=== PATIENT | female | born 1995 | race African-American/Black ===

== ENCOUNTER → 2017-07-31 | Outpatient (CLI) | payer OTHER ==
[~2017-07-31] MED LIST: HYDR-3533 PO; IBUP-238 PO; hiv med PO
== END ==
LOC: HPND 09:02
PROVIDERS: ATTEND Obstetrics & Gynecology
DX: O98.511 Other viral diseases complicating pregnancy, first trimester (principal); O99.211 Obesity complicating pregnancy, first trimester; B20 Human immunodeficiency virus [HIV] disease; E66.01 Morbid (severe) obesity due to excess calories; Z68.41 Body mass index [BMI] 40.0-44.9, adult
CPT/HCPCS: 36415; 76813

== ENCOUNTER 2017-12-31 14:09 | Inpatient (IN) ==
[2017-12-31] MEDS ORDERED: Labetalol HCl Inj 100 MG/20 ML Vial IV.PUSH ONE ×2 (15:28→16:53)
--- NOTE | 2017-12-31 15:33 | ED ---
History of Present Illness Primary Care Physician: No Primary Care Physician [facility] History of Present Illness: 22 y/o F, at [id number] presents with high BP, headache, and blurry vision today. Pt had high BP in office today of 148/100, with a repeat of 152/107 at home after resting. She has had a 8/10 headache over the day today with accompanying blurry vision. Denies any cxns, LOF, VB. +FM Obhx: short cervix during (2.3) with progesterone use, and increase to 3.4 HIV of - on medication, undetected viral load this is checked every 3 months Medhx: HIV as above surghx: ankle surgery meds: PNV all: NKDA Review of Systems All other systems reviewed negative except as stated in HPI PMFSH - History History Provided By: Patient - Medical History Medical History: Medical History (Last Updated 12/31/17 @ 14:14 by Mary Harkins) Patient denies medical problems - Surgical History Surgical History: Surgical History (Last Updated 12/31/17 @ 14:14 by Mary Harkins) History of ankle surgery - Travel History Recent Travel in the [facility] Within the Last 8 Weeks: No Recent Travel Out of the Country Within the Last 8 Weeks: No Medications and Allergies Allergies Allergy/AdvReac Type Severity Reaction Status Date / Time No Known Allergies Allergy Verified 12/31/17 14:22 Home Medications Medication Instructions Recorded Confirmed Type PNV cmb#95-ferrous fumarate-FA 1 tab PO DAILY 10/14/17 12/31/17 History [] bklttez-htz-mknht-tenofo disop 1,500 mg PO DAILY 10/14/17 12/31/17 History [Stribild] Exam Vital signs: Vital Signs 12/31/17 14:11 12/31/17 15:06 12/31/17 15:16 Temperature 98.8 F Pulse Rate 91 H 87 84 Respiratory Rate 16 Blood Pressure 197/116 H 156/100 H 168/110 H Pulse Oximetry 100 Intake & Output 12/30/17 12/31/17 12/31/17 18:59 06:59 18:59 Weight 119.295 kg Narrative: ENERAL: Well-nourished, well-developed patient. SKIN: Warm and dry. HEAD: Normocephalic and atraumatic. EYES: No scleral icterus. No injection or drainage. ENT: No nasal drainage noted. Mucous membranes pink. Airway patent. NECK: Supple, trachea midline. No JVD. CARDIOVASCULAR: Regular rate and rhythm without murmurs, gallops, or rubs. RESPIRATORY: Breath sounds equal bilaterally. No accessory muscle use. ABDOMEN/GI: Abdomen soft, non-tender, bowel sounds present, no rebound, no guarding Gravid to 35 weeks size Fundal Height: 35 SVE: f/60/-2, anterior and soft GENITOURINARY: External Genitalia: intact and normal in appearance FHT's: Cat 1 tracing, no decels no cxns on monitor EXTREMITIES: No cyanosis or edema. BACK: Nontender without obvious deformity. No CVA tenderness. NEUROLOGICAL: Awake and alert. Motor and sensory grossly within normal limits. Five out of 5 muscle strength in all muscle groups. Normal speech. Results - Labs CBC & Chem 7: 12/31/17 16:25 12/31/17 16:25 Assessment and Plan - Diagnosis (1) 35 weeks gestation of Code(s): Z3A.35 - 35 weeks gestation of Status: Acute (2) Elevated blood pressure affecting in third trimester, antepartum Code(s): O16.3 - Unspecified maternal hypertension, third trimester Status: Acute Plan: >160/100, headache, blurry vision f/u UA, Urine P/C ratio cat 1 tracing, cont to monitor f/u CBC, CMP STAT labetalol 20mg IV for BP >160/100 f/u BPs q15min Will likely admit for pre-eclampsia management and possible induction of labor Betamethasone x 1 now Discharge Plan - Discharge Disposition Patient Disposition: 30 Still Patient - Physicians Team ED Provider: Halie Garcia Primary Care Provider: Primary Care JackiZoila - Rxs /Orders / Referrals /Forms Prescriptions: No Action lbrrxqj-iqs-tyoys-tenofo disop [Stribild] [id number] mg Tablet 1,500 mg PO DAILY PNV cmb#95-ferrous fumarate-FA [] 28 mg iron- 800 mcg Tablet 1 tab PO DAILY - Discharge Instructions Print Language: Romanian
[2017-12-31 16:48] LABS: Baso % (Auto) 0.1 % (0.0-2.0); Eos # (Auto) 0.1 th/mm3 (0.0-0.4); Eos % (Auto) 0.8 % (0.0-4.0); Hematocrit 32.2 % (35.0-46.0); Hemoglobin 11.1 gm/dL (11.6-15.3); Lymph # (Auto) 1.6 th/mm3 (1.0-4.8); Lymph % (Auto) 21.8 % (9.0-44.0); Mean Corpuscular HGB Conc 34.4 % (32.0-36.0); Mean Corpuscular Hemoglobin 30.4 pg (27.0-34.0); Mean Corpuscular Volume 88.4 fL (80.0-100.0); Mean Platelet Volume 9.3 fL (7.0-11.0); Mono # (Auto) 0.7 th/mm3 (0.0-0.9); Mono % (Auto) 9.1 % (0.0-8.0); Neut # (Auto) 4.9 th/mm3 (1.8-7.7); Neut % (Auto) 68.2 % (16.0-70.0); Platelet Count 219 th/mm3 (150-450); Red Blood Count 3.64 mil/mm3 (4.00-5.30); Red Cell Distribution Width 12.4 % (11.6-17.2); White Blood Count 7.2 th/mm3 (4.0-11.0)
[2017-12-31 16:50] LABS: Bacteria,Urine Many /hpf; Bilirubin,Urine Negative (Negative); Clarity,Urine Cloudy (Clear); Color,Urine Yellow (Yellw/Straw); Glucose,Urine (UA) Negative (Negative); Leukocyte Esterase,Urine Large (Negative); Nitrite,Urine Negative (Negative); Specific Gravity,Urine 1.002 (1.002-1.035); Squamous Epithelial Cell,Urine 15 /hpf (0-5); Trichomonas,Urine Occasional /hpf
[2017-12-31 17:05] LABS: Protein/Creatinine Ratio,Urine 0.77 (0.00-0.14)
[2017-12-31 17:05] LABS: Albumin 2.6 g/dL (3.4-5.0); Anion Gap 9 meq/L (5-15); Aspartate Aminotransferase 15 U/L (16-38); Blood Urea Nitrogen 6 mg/dL (7-18); Calcium 8.3 mg/dL (8.5-10.1); Carbon Dioxide 25.4 meq/L (21.0-32.0); Chloride 106 meq/L (98-107); Glomerular Filtration Rate Greater Than 89 mL/min (>89); Glucose,Random 69 mg/dL (74-106); Potassium 3.2 meq/L (3.5-5.1); Sodium 140 meq/L (136-145)
[2017-12-31 17:14] LABS: Alanine Aminotransferase 13 U/L (9-42); Alkaline Phosphatase 119 U/L (45-117); Total Protein 7.2 g/dL (6.4-8.2)
[2017-12-31] MEDS ORDERED: Betamethasone Sod Phos/Acetate Inj 30 MG/5 ML Vial IM ONE (17:17)
[2017-12-31] MEDS ORDERED: Mag Sulf/Water 4 gm/100 ml 100 ML IV.SIG ONE (17:19)
[2017-12-31] MEDS ORDERED: DEXTROSE 5% IV.SIG ONE ×2 (17:25)
[2017-12-31] MEDS ORDERED: WATER IV.SIG ONE ×2 (17:25)
[2017-12-31] MEDS ORDERED: ZIDOVUDINE IV.SIG ONE ×2 (17:25)
--- NOTE | 2017-12-31 17:31 | P.PN ---
Subjective Interval history: [facility] Attending 22 year-old with IUP at 35.3; care complicated by obesity, HIV on Stribild with reportedly undetectable viral load, shortened cervix during . The patient was sent from the clinic with elevated blood pressures of 150s-175/100-103 and GAYTAN/visual changes. Ultrasound confirms fetus in cephalic presentation with normal dopplers and weight 5#5oz. Discussed with [facility] regarding Celestone, which is potentiated by 2-3x, so pharmacist recommended half the dose. Labs with normal platelets, AST/ALT but PC 0.77. Discussed risks of IOL and risks/benefits/alternatives to section. Discussed that would be reserved for maternal or indications. Will start mag sulfate, AZT, and induction of labor. All of the patient's questions were answered and the patient transferred to L&D. Physical Exam Vital signs: Vital Signs 12/31/17 14:11 12/31/17 15:06 12/31/17 15:16 Temperature 98.8 F Pulse Rate 91 H 87 84 Respiratory Rate 16 Blood Pressure 197/116 H 156/100 H 168/110 H Pulse Oximetry 100 12/31/17 15:31 12/31/17 16:35 12/31/17 16:46 Temperature Pulse Rate 73 66 73 Respiratory Rate Blood Pressure 164/110 H 154/103 H 165/98 H Pulse Oximetry 12/31/17 16:50 12/31/17 16:55 Temperature Pulse Rate 70 72 Respiratory Rate Blood Pressure 161/104 H Pulse Oximetry Intake & Output 12/30/17 12/31/17 12/31/17 18:59 06:59 18:59 Weight 119.295 kg Results - Labs CBC & Chem 7: 12/31/17 16:25 12/31/17 16:25 Laboratory Results - last 24 hr 12/31/17 12/31/17 12/31/17 15:15 15:15 15:15 WBC RBC Hgb Hct MCV MCH MCHC RDW Plt Count MPV Neut % (Auto) Lymph % (Auto) [place] % (Auto) Eos % (Auto) Baso % (Auto) Neut # (Auto) Lymph # (Auto) [place] # (Auto) Eos # (Auto) Baso # (Auto) WBC Differential Differential Comment Sodium Potassium Chloride Carbon Dioxide Anion Gap BUN Creatinine Estimated GFR Random Glucose Calcium Total Bilirubin AST ALT Alkaline Phosphatase Total Protein Albumin Ur Collection Type Cancelled Urine Color Cancelled Yellow Urine Clarity Cancelled Cloudy H Urine pH Cancelled 7.0 Ur Specific [place] Cancelled 1.002 Urine Protein Cancelled Negative Urine Glucose (UA) Cancelled Negative Urine Ketones Cancelled Negative Urine Occult Blood Cancelled Small H Urine Nitrate Cancelled Negative Urine Bilirubin Cancelled Negative Urine Ictotest Cancelled Urine Urobilinogen Cancelled Less than 2 Ur Leukocyte Esterase Cancelled Large H Urine RBC Cancelled 11 H Urine WBC Cancelled 2 Urine WBC Clumps Cancelled Ur Squamous Epith Cells Cancelled 15 Ur Transition Epith Cell Cancelled Ur Renal Epithelial Cell Cancelled Calcium Carbonate Cryst Cancelled Calcium Oxalate Crystal Cancelled Leucine Crystals Cancelled Cystine Crystals Cancelled Uric Acid Crystals Cancelled Triple Phos Crystals Cancelled Cholesterol Crystals Cancelled Tyrosine Crystals Cancelled Amorphous Sediment Cancelled Urine Bacteria Cancelled Many H Hyaline Casts Cancelled Granular Casts Cancelled Fine Granular Casts Cancelled Coarse Granular Casts Cancelled Waxy Casts Cancelled RBC Casts Cancelled WBC Casts Cancelled Urine Mucus Cancelled Urine Trichomonas Cancelled Occasional H Urine Yeast Cancelled Few H Ur Yeast w Hyphae Cancelled Occasional H Urine Sperm Cancelled Ur Oval Fat Bodies Cancelled Micro UA Comment Cancelled Culture indicated Ur Microscopic Review Cancelled Not Reportable Urine Culture Comments Culture indicated Ur Random Creatinine 15 L U Random Total Protein 11.5 Urine Collection Time Cancelled Protein/Creatinin Ratio 0.77 H Urine Comment Cancelled Blood Type Antibody Screen 12/31/17 12/31/17 12/31/17 16:25 16:25 16:25 WBC 7.2 RBC 3.64 L Hgb 11.1 L Hct 32.2 L MCV 88.4 MCH 30.4 MCHC 34.4 RDW 12.4 Plt Count 219 MPV 9.3 Neut % (Auto) 68.2 Lymph % (Auto) 21.8 [place] % (Auto) 9.1 H Eos % (Auto) 0.8 Baso % (Auto) 0.1 Neut # (Auto) 4.9 Lymph # (Auto) 1.6 [place] # (Auto) 0.7 Eos # (Auto) 0.1 Baso # (Auto) 0.0 WBC Differential . Differential Comment Auto diff final Sodium 140 Potassium 3.2 L Chloride 106 Carbon Dioxide 25.4 Anion Gap 9 BUN 6 L Creatinine 0.88 Estimated GFR Greater than 89 Random Glucose 69 L Calcium 8.3 L Total Bilirubin 0.3 AST 15 L ALT 13 Alkaline Phosphatase 119 H Total Protein 7.2 Albumin 2.6 L Ur Collection Type Urine Color Urine Clarity Urine pH Ur Specific [place] Urine Protein Urine Glucose (UA) Urine Ketones Urine Occult Blood Urine Nitrate Urine Bilirubin Urine Ictotest Urine Urobilinogen Ur Leukocyte Esterase Urine RBC Urine WBC Urine WBC Clumps Ur Squamous Epith Cells Ur Transition Epith Cell Ur Renal Epithelial Cell Calcium Carbonate Cryst Calcium Oxalate Crystal Leucine Crystals Cystine Crystals Uric Acid Crystals Triple Phos Crystals Cholesterol Crystals Tyrosine Crystals Amorphous Sediment Urine Bacteria Hyaline Casts Granular Casts Fine Granular Casts Coarse Granular Casts Waxy Casts RBC Casts WBC Casts Urine Mucus Urine Trichomonas Urine Yeast Ur Yeast w Hyphae Urine Sperm Ur Oval Fat Bodies Micro UA Comment Ur Microscopic Review Urine Culture Comments Ur Random Creatinine U Random Total Protein Urine Collection Time Protein/Creatinin Ratio Urine Comment Blood Type B Positive Antibody Screen Negative
--- NOTE | 2017-12-31 17:43 | P.HPOB ---
History of Present Illness Primary Care Physician: No Primary Care Physician [facility] History of Present Illness: 22 y/o F, at [id number] presents with high BP, headache, and blurry vision today. Pt had high BP in office today of 148/100, with a repeat of 152/107 at home after resting. She has had a 8/10 headache over the day today with accompanying blurry vision. Denies any cxns, LOF, VB. +FM Obhx: short cervix during (2.3) with progesterone use, and increase to 3.4 HIV of - on medication, undetected viral load this is checked every 3 months Medhx: HIV as above surghx: ankle surgery meds: PNV all: NKDA Review of Systems All other systems reviewed negative except as stated in HPI PMFSH - History History Provided By: Patient - Medical History Medical History: Medical History (Last Updated 12/31/17 @ 14:14 by Mary Harkins) Patient denies medical problems - Surgical History Surgical History: Surgical History (Last Updated 12/31/17 @ 14:14 by Mary Harkins) History of ankle surgery - Travel History Recent Travel in the [facility] Within the Last 8 Weeks: No Recent Travel Out of the Country Within the Last 8 Weeks: No Medications and Allergies Allergies Allergy/AdvReac Type Severity Reaction Status Date / Time No Known Allergies Allergy Verified 12/31/17 14:22 Home Medications Medication Instructions Recorded Confirmed Type PNV cmb#95-ferrous fumarate-FA 1 tab PO DAILY 10/14/17 12/31/17 History [] civkxpu-vvt-pvjju-tenofo disop 1,500 mg PO DAILY 10/14/17 12/31/17 History [Stribild] Exam Vital signs: Vital Signs 12/31/17 14:11 12/31/17 15:06 12/31/17 15:16 Temperature 98.8 F Pulse Rate 91 H 87 84 Respiratory Rate 16 Blood Pressure 197/116 H 156/100 H 168/110 H Pulse Oximetry 100 Intake & Output 12/30/17 12/31/17 12/31/17 18:59 06:59 18:59 Weight 119.295 kg Narrative: ENERAL: Well-nourished, well-developed patient. SKIN: Warm and dry. HEAD: Normocephalic and atraumatic. EYES: No scleral icterus. No injection or drainage. ENT: No nasal drainage noted. Mucous membranes pink. Airway patent. NECK: Supple, trachea midline. No JVD. CARDIOVASCULAR: Regular rate and rhythm without murmurs, gallops, or rubs. RESPIRATORY: Breath sounds equal bilaterally. No accessory muscle use. ABDOMEN/GI: Abdomen soft, non-tender, bowel sounds present, no rebound, no guarding Gravid to 35 weeks size Fundal Height: 35 SVE: f/60/-2, anterior and soft GENITOURINARY: External Genitalia: intact and normal in appearance FHT's: Cat 1 tracing, no decels no cxns on monitor EXTREMITIES: No cyanosis or edema. BACK: Nontender without obvious deformity. No CVA tenderness. NEUROLOGICAL: Awake and alert. Motor and sensory grossly within normal limits. Five out of 5 muscle strength in all muscle groups. Normal speech. Results - Labs CBC & Chem 7: 12/31/17 16:25 12/31/17 16:25 Assessment and Plan - Diagnosis (1) 35 weeks gestation of Code(s): Z3A.35 - 35 weeks gestation of Status: Acute (2) Elevated blood pressure affecting in third trimester, antepartum Code(s): O16.3 - Unspecified maternal hypertension, third trimester Status: Acute Plan: >160/100, headache, blurry vision - Cont to treat BP PRN - Start Mag - beta x 1 now - Cervadil induction for pre-eclampsia HIV in , undetectable load - f/u viral load - intrapartum Zidovudine ordered, weight-based dosinmg/kg bolus x 1, then 1mg/kg/hr
[2017-12-31] MEDS: Mag Sulf/Water 40 gm/1000 ml 40 GM/1,000 ML BAG IV.CONT SCH (18:15)
[2017-12-31 19:58] LABS: Amphetamine Urine With Conf Neg (Neg); Benzodiazepine Urine With Conf Neg (Neg)
[2017-12-31] MEDS: Elvitegravir/Cobi/Emtricit/Tenof 150/150/200/300 MG Tablet PO SCH (20:59)
--- NOTE | 2017-12-31 22:15 | P.PN ---
Subjective Interval history: Patient was seen and examined, is having spontaneous contractions so will avoid cytotec at this time as per protocol. Cervidil placed without difficulty, SVE closed/50/-1. Rapid GBS pending, continue AZT/magnesium sulfate/close observation of BP. Physical Exam Vital signs: Vital Signs 12/31/17 14:11 12/31/17 15:06 12/31/17 15:16 Temperature 98.8 F Pulse Rate 91 H 87 84 Respiratory Rate 16 Blood Pressure 197/116 H 156/100 H 168/110 H Pulse Oximetry 100 12/31/17 15:31 12/31/17 16:35 12/31/17 16:46 Temperature Pulse Rate 73 66 73 Respiratory Rate Blood Pressure 164/110 H 154/103 H 165/98 H Pulse Oximetry 12/31/17 16:50 12/31/17 16:55 12/31/17 17:10 Temperature Pulse Rate 70 72 77 Respiratory Rate Blood Pressure 161/104 H 160/108 H Pulse Oximetry 12/31/17 18:05 12/31/17 18:10 12/31/17 18:21 Temperature Pulse Rate 72 69 79 Respiratory Rate Blood Pressure 174/107 H Pulse Oximetry 12/31/17 18:40 12/31/17 18:41 12/31/17 18:55 Temperature Pulse Rate 76 89 77 Respiratory Rate Blood Pressure 150/85 H 157/99 H Pulse Oximetry 12/31/17 19:15 12/31/17 19:25 12/31/17 19:35 Temperature Pulse Rate 73 73 75 Respiratory Rate Blood Pressure Pulse Oximetry 12/31/17 19:45 12/31/17 19:55 12/31/17 20:05 Temperature Pulse Rate 81 80 75 Respiratory Rate 18 Blood Pressure 141/88 H Pulse Oximetry 12/31/17 20:10 12/31/17 20:15 12/31/17 20:20 Temperature Pulse Rate 74 78 78 Respiratory Rate Blood Pressure Pulse Oximetry 12/31/17 20:25 12/31/17 20:30 12/31/17 20:35 Temperature Pulse Rate 82 74 75 Respiratory Rate Blood Pressure Pulse Oximetry 12/31/17 20:40 12/31/17 20:55 12/31/17 21:00 Temperature Pulse Rate 80 74 73 Respiratory Rate 18 Blood Pressure Pulse Oximetry 12/31/17 21:01 12/31/17 21:15 10/30/18 21:25 Temperature Pulse Rate 80 78 85 Respiratory Rate Blood Pressure 153/90 H Pulse Oximetry 12/31/17 21:35 12/31/17 21:55 12/31/17 21:58 Temperature 98.3 F Pulse Rate 81 77 Respiratory Rate 18 Blood Pressure Pulse Oximetry 12/31/17 22:05 12/31/17 22:10 Temperature Pulse Rate 76 79 Respiratory Rate Blood Pressure 156/92 H Pulse Oximetry Intake & Output 12/31/17 12/31/17 01/01/18 06:59 18:59 06:59 Intake Total 100 / 100 249 / 249 Balance 100 / 100 249 / 249 Weight 119.295 kg Intake: IV 100 / 100 249 / 249 Retrovir Inj 400 MG In D5W Inj 100 / 100 210 ML @ 1 MG/KG/HR 74.55 mls/ hr IV.CONT .[id number] AMRIO ALBERTO Rx#: [id number] Magnesium Sulfate/Water 4 gm/ 100 / 100 100 ml Premix 100 ML @ 300 mls/ hr IV.SIG ONCE ONE Rx#:[id number] Retrovir Inj 240 MG In D5W Inj 149 / 149 100 ML @ 124 mls/hr IV.SIG ONCE ONE Rx#:[id number] Results - Labs CBC & Chem 7: 12/31/17 16:25 12/31/17 16:25 Laboratory Results - last 24 hr 12/31/17 12/31/17 12/31/17 15:15 15:15 15:15 WBC RBC Hgb Hct MCV MCH MCHC RDW Plt Count MPV Neut % (Auto) Lymph % (Auto) [place] % (Auto) Eos % (Auto) Baso % (Auto) Neut # (Auto) Lymph # (Auto) [place] # (Auto) Eos # (Auto) Baso # (Auto) WBC Differential Differential Comment Sodium Potassium Chloride Carbon Dioxide Anion Gap BUN Creatinine Estimated GFR Random Glucose Calcium Total Bilirubin AST ALT Alkaline Phosphatase Total Protein Albumin Ur Collection Type Cancelled Urine Color Cancelled Yellow Urine Clarity Cancelled Cloudy H Urine pH Cancelled 7.0 Ur Specific [place] Cancelled 1.002 Urine Protein Cancelled Negative Urine Glucose (UA) Cancelled Negative Urine Ketones Cancelled Negative Urine Occult Blood Cancelled Small H Urine Nitrate Cancelled Negative Urine Bilirubin Cancelled Negative Urine Ictotest Cancelled Urine Urobilinogen Cancelled Less than 2 Ur Leukocyte Esterase Cancelled Large H Urine RBC Cancelled 11 H Urine WBC Cancelled 2 Urine WBC Clumps Cancelled Ur Squamous Epith Cells Cancelled 15 Ur Transition Epith Cell Cancelled Ur Renal Epithelial Cell Cancelled Calcium Carbonate Cryst Cancelled Calcium Oxalate Crystal Cancelled Leucine Crystals Cancelled Cystine Crystals Cancelled Uric Acid Crystals Cancelled Triple Phos Crystals Cancelled Cholesterol Crystals Cancelled Tyrosine Crystals Cancelled Amorphous Sediment Cancelled Urine Bacteria Cancelled Many H Hyaline Casts Cancelled Granular Casts Cancelled Fine Granular Casts Cancelled Coarse Granular Casts Cancelled Waxy Casts Cancelled RBC Casts Cancelled WBC Casts Cancelled Urine Mucus Cancelled Urine Trichomonas Cancelled Occasional H Urine Yeast Cancelled Few H Ur Yeast w Hyphae Cancelled Occasional H Urine Sperm Cancelled Ur Oval Fat Bodies Cancelled Micro UA Comment Cancelled Culture indicated Ur Microscopic Review Cancelled Not Reportable Urine Culture Comments Culture indicated Ur Random Creatinine 15 L U Random Total Protein 11.5 Urine Collection Time Cancelled Protein/Creatinin Ratio 0.77 H Urine Comment Cancelled Urine Opiates Screen Ur Barbiturates Screen Ur Amphetamine Screen U Benzodiazepines Scrn Urine Cocaine Screen U Cannabinoids Screen Blood Type Antibody Screen 12/31/17 12/31/17 12/31/17 15:15 16:25 16:25 WBC 7.2 RBC 3.64 L Hgb 11.1 L Hct 32.2 L MCV 88.4 MCH 30.4 MCHC 34.4 RDW 12.4 Plt Count 219 MPV 9.3 Neut % (Auto) 68.2 Lymph % (Auto) 21.8 [place] % (Auto) 9.1 H Eos % (Auto) 0.8 Baso % (Auto) 0.1 Neut # (Auto) 4.9 Lymph # (Auto) 1.6 [place] # (Auto) 0.7 Eos # (Auto) 0.1 Baso # (Auto) 0.0 WBC Differential . Differential Comment Auto diff final Sodium 140 Potassium 3.2 L Chloride 106 Carbon Dioxide 25.4 Anion Gap 9 BUN 6 L Creatinine 0.88 Estimated GFR Greater than 89 Random Glucose 69 L Calcium 8.3 L Total Bilirubin 0.3 AST 15 L ALT 13 Alkaline Phosphatase 119 H Total Protein 7.2 Albumin 2.6 L Ur Collection Type Urine Color Urine Clarity Urine pH Ur Specific [place] Urine Protein Urine Glucose (UA) Urine Ketones Urine Occult Blood Urine Nitrate Urine Bilirubin Urine Ictotest Urine Urobilinogen Ur Leukocyte Esterase Urine RBC Urine WBC Urine WBC Clumps Ur Squamous Epith Cells Ur Transition Epith Cell Ur Renal Epithelial Cell Calcium Carbonate Cryst Calcium Oxalate Crystal Leucine Crystals Cystine Crystals Uric Acid Crystals Triple Phos Crystals Cholesterol Crystals Tyrosine Crystals Amorphous Sediment Urine Bacteria Hyaline Casts Granular Casts Fine Granular Casts Coarse Granular Casts Waxy Casts RBC Casts WBC Casts Urine Mucus Urine Trichomonas Urine Yeast Ur Yeast w Hyphae Urine Sperm Ur Oval Fat Bodies Micro UA Comment Ur Microscopic Review Urine Culture Comments Ur Random Creatinine U Random Total Protein Urine Collection Time Protein/Creatinin Ratio Urine Comment Urine Opiates Screen Neg Ur Barbiturates Screen Neg Ur Amphetamine Screen Neg U Benzodiazepines Scrn Neg Urine Cocaine Screen Neg U Cannabinoids Screen Pos H Blood Type Antibody Screen 12/31/17 16:25 WBC RBC Hgb Hct MCV MCH MCHC RDW Plt Count MPV Neut % (Auto) Lymph % (Auto) [place] % (Auto) Eos % (Auto) Baso % (Auto) Neut # (Auto) Lymph # (Auto) [place] # (Auto) Eos # (Auto) Baso # (Auto) WBC Differential Differential Comment Sodium Potassium Chloride Carbon Dioxide Anion Gap BUN Creatinine Estimated GFR Random Glucose Calcium Total Bilirubin AST ALT Alkaline Phosphatase Total Protein Albumin Ur Collection Type Urine Color Urine Clarity Urine pH Ur Specific [place] Urine Protein Urine Glucose (UA) Urine Ketones Urine Occult Blood Urine Nitrate Urine Bilirubin Urine Ictotest Urine Urobilinogen Ur Leukocyte Esterase Urine RBC Urine WBC Urine WBC Clumps Ur Squamous Epith Cells Ur Transition Epith Cell Ur Renal Epithelial Cell Calcium Carbonate Cryst Calcium Oxalate Crystal Leucine Crystals Cystine Crystals Uric Acid Crystals Triple Phos Crystals Cholesterol Crystals Tyrosine Crystals Amorphous Sediment Urine Bacteria Hyaline Casts Granular Casts Fine Granular Casts Coarse Granular Casts Waxy Casts RBC Casts WBC Casts Urine Mucus Urine Trichomonas Urine Yeast Ur Yeast w Hyphae Urine Sperm Ur Oval Fat Bodies Micro UA Comment Ur Microscopic Review Urine Culture Comments Ur Random Creatinine U Random Total Protein Urine Collection Time Protein/Creatinin Ratio Urine Comment Urine Opiates Screen Ur Barbiturates Screen Ur Amphetamine Screen U Benzodiazepines Scrn Urine Cocaine Screen U Cannabinoids Screen Blood Type B Positive Antibody Screen Negative
[2017-12-31] MEDS ORDERED: Oxytocin 30 Units/500ml Premix 30 UNITS/500 ML BAG IV.SIG ONE (23:04)
[2017-12-31] MEDS ORDERED: Naloxone Inj 0.4 MG/ML Vial IV.PUSH PRN (23:04)
[2017-12-31] MEDS ORDERED: Citric Acid/Sodium Citrate Liq 30 ML UDC PO SCH (23:15)
[2017-12-31] MEDS: fentaNYL Citrate Inj 100 MCG/2 ML Ampul IV.PUSH PRN (23:19)
[2018-01-01] MEDS ORDERED: Betamethasone Sod Phos/Acetate Inj 30 MG/5 ML Vial IM ONE (01:00)
[2018-01-01] MEDS: fentaNYL Citrate Inj 100 MCG/2 ML Ampul IV.PUSH PRN ×2 (01:03→04:30)
[2018-01-01] MEDS ORDERED: SODIUM CHLOR 0.9% IV.CONT SCH (05:00)
[2018-01-01] MEDS ORDERED: ZIDOVUDINE IV.CONT SCH (05:00)
[2018-01-01] MEDS ORDERED: Elvitegravir/Cobi/Emtricit/Tenof 150/150/200/300 MG Tablet PO SCH (09:00)
[2018-01-01] MEDS: Elvitegravir/Cobi/Emtricit/Tenof 150/150/200/300 MG Tablet PO SCH (12:58)
[2018-01-01] MEDS: Mag Sulf/Water 40 gm/1000 ml 40 GM/1,000 ML BAG IV.CONT SCH (15:04)
[2018-01-01] MEDS: Prenatal Vit/Ca/Iron/Folic Acid Tablet PO SCH (16:15)
[2018-01-01] MEDS ORDERED: Zolpidem Tartrate 5 MG Tablet PO ONE (22:37)
[2018-01-02] MEDS ORDERED: Morphine Sulfate PF Inj 5 MG/10 ML Ampul ONE (02:14)
[2018-01-02] MEDS ORDERED: ceFAZolin 2 GM Premix Inj 2 GM/50 ML PIGGYBACK IV.SIG ONE (02:16)
[2018-01-02] MEDS ORDERED: Ketorolac Inj 30 MG/ML (IVP) Vial IV.PUSH ONE (02:20)
[2018-01-02] MEDS ORDERED: Phenylephrine/NS 1000 MCG/10ML Syringe IV.PUSH ONE (02:20)
[2018-01-02 03:14] LABS: Cord Arterial Blood HCO3 22.8
[2018-01-02] MEDS ORDERED: fentaNYL Citrate Inj 100 MCG/2 ML Ampul ONE (03:23)
[2018-01-02] MEDS ORDERED: Acetaminophen 325 MG Tablet PO PRN (04:03)
[2018-01-02] MEDS ORDERED: Simethicone 80 MG Chew Tablet PO PRN (04:03)
[2018-01-02] MEDS ORDERED: Senna/Docusate Sodium 8.6/50 MG Tablet PO PRN (04:03)
[2018-01-02] MEDS ORDERED: Oxytocin 30 Units/500ml Premix 30 UNITS/500 ML BAG IV.SIG ONE (04:03)
--- NOTE | 2018-01-02 04:23 | P.OP ---
- Preoperative Diagnosis (1) Severe pre-eclampsia affecting first (2) Non-reassuring heart rate or rhythm affecting management of mother (3) HIV (human immunodeficiency virus infection) (4) 35 weeks gestation of - Postoperative Diagnosis (1) 35 weeks gestation of (2) Non-reassuring heart rate or rhythm affecting management of mother (3) Severe pre-eclampsia affecting first (4) HIV (human immunodeficiency virus infection) Date of procedure: 01/02/18 Procedure: Primary low transverse section Anesthesia: regional Surgeon: Dave Stewart MD Estimated blood loss (mL): 500 IV fluids (mL): 1,000 Urine output (mL): 100 Operation and Findings: This patient is 35 weeks with severe preeclampsia with now being induced for same. She also has a history of positive HIV with low viral load and that was induced with cervical ripening initiation with the Cervidil and Cytotec. She has developed nonreassuring heart rate tracing with minimal to absent variability and repetitive late decelerations. At that time her cervix is fingertip 90% and -3, is felt patient needed to be delivered by transabdominal route. Patient was taken to the operating room and placed in the operating table after adequate regional anesthetic was applied she was prepped and draped for abdominal surgery a Pfannenstiel incision was made lower abdomen carried to fascia sharply the fascia dissected off the rectus muscle and rectus split in the midline peritoneal cavity entered sharply. The incision extended superior and inferiorly and stretched open. The bladder blade placed large incision and the visceral peritoneum was reflected down sharply and placed on the bladder blade. A transverse hysterotomy was made extended bluntly bilaterally and a female was delivered at 2:59 AM 8/ 9 weight 2450 gm, cord gas done 7.09. Delayed cord clamping was done cord gas segment was collected and then cord blood collected usual fashion. Placenta manually extracted and sent to pathology. Uterus was exteriorized and the uterus was then cleaned of all remnants of membranes. The hysterotomy is closed in running layer 0 chromic followed by imbricating suture of the same hemostasis was achieved. Ovaries and tubes within normal limits. The uterus was dropped back into the abdomen the cul-de-sac gutters suctioned of blood. The parietal peritoneum closed in running layer of 2-0 Vicryl. Rectus muscle reapproximated with stick ties of chromic and Vicryl. Fascia closed in running layer of 0 Vicryl. Subcutaneous tissue was copiously irrigated with antibiotic solution a small Hank-Pantoja drain was placed in the bottom of the incision near the fascia and the space closed with a running 0 plain catgut suture. The skin was then closed with 3-0 Monocryl subcuticular stitch. The drain was brought out through the abdomen and placed to closed system drainage. Pressure dressing with Steri- Strips applied the. Sponge and needle correct x2, there is no other complication or problem. The patient taken to recovery in stable condition. She will be continued on magnesium sulfate for 24 hours and for IV AZT for the next 2-3 hours
[2018-01-02] MEDS ORDERED: Naloxone Inj 0.4 MG/ML Vial IV.PUSH PRN (06:42)
[2018-01-02] MEDS ORDERED: Oxytocin 30 Units/500ml Premix 30 UNITS/500 ML BAG IV.SIG PRN (09:03)
[2018-01-02] MEDS: Mag Sulf/Water 40 gm/1000 ml 40 GM/1,000 ML BAG IV.CONT SCH (09:26)
[2018-01-02] MEDS: Elvitegravir/Cobi/Emtricit/Tenof 150/150/200/300 MG Tablet PO SCH ×2 (12:55→16:56)
[2018-01-02] MEDS: Prenatal Vit/Ca/Iron/Folic Acid Tablet PO SCH ×2 (12:55→13:43)
[2018-01-03] MEDS: Prenatal Vit/Ca/Iron/Folic Acid Tablet PO SCH (09:11)
[2018-01-03 09:17] LABS: Baso % (Auto) 0.1 % (0.0-2.0); Hematocrit 30.9 % (35.0-46.0); Hemoglobin 10.6 gm/dL (11.6-15.3); Lymph # (Auto) 1.4 th/mm3 (1.0-4.8); Lymph % (Auto) 12.3 % (9.0-44.0); Mean Corpuscular HGB Conc 34.4 % (32.0-36.0); Mean Corpuscular Hemoglobin 30.3 pg (27.0-34.0); Mean Corpuscular Volume 88.1 fL (80.0-100.0); Mean Platelet Volume 8.8 fL (7.0-11.0); Mono # (Auto) 0.9 th/mm3 (0.0-0.9); Mono % (Auto) 7.3 % (0.0-8.0); Neut # (Auto) 9.4 th/mm3 (1.8-7.7); Neut % (Auto) 80.3 % (16.0-70.0); Platelet Count 255 th/mm3 (150-450); Red Blood Count 3.51 mil/mm3 (4.00-5.30); Red Cell Distribution Width 12.9 % (11.6-17.2); White Blood Count 11.7 th/mm3 (4.0-11.0)
--- NOTE | 2018-01-03 10:36 | P.PNOB ---
Subjective Post op day: 1 Interval history: Patient is a 22-year-old with a history of HIV with undetectable viral load who was admitted and induced due to preeclampsia with severe features. She has been treated with magnesium, Celestone, the is a Zidovudine and labetalol. Postoperative day #1 s/p CXN. Afebrile with some continued hypertension. Decreased lochia. Denies dysuria. No breast tenderness. Positive flatus. Ambulating well. Denies calf pain or shortness of breath. Multiple episodes of emesis yesterday, last episode 8 PM last night. She has been tolerating solid food this morning without nausea. She denies headache, changes in vision, chest pain, palpitations, dizziness, lightheadedness. Otherwise, she is doing well this morning and has no other complaints. Objective Vital Signs/I&O: Vital Signs 01/02/18 11:01 01/02/18 12:00 01/02/18 12:01 Temperature 98.2 F Pulse Rate 75 87 80 Respiratory Rate Blood Pressure 144/75 H 149/88 H 142/72 H 01/02/18 14:03 01/02/18 15:01 01/02/18 16:00 Temperature 98.5 F Pulse Rate 88 76 86 Respiratory Rate Blood Pressure 166/100 H 151/88 H 158/95 H 01/02/18 16:42 01/02/18 17:01 01/02/18 19:00 Temperature Pulse Rate 86 85 Respiratory Rate Blood Pressure 155/97 H 162/103 H 156/94 H 01/02/18 19:21 01/02/18 19:53 01/02/18 20:00 Temperature 98.0 F Pulse Rate 82 Respiratory Rate 18 Blood Pressure 152/98 H 01/02/18 21:01 01/02/18 22:01 01/02/18 23:01 Temperature Pulse Rate 86 89 76 Respiratory Rate Blood Pressure 151/91 H 155/90 H 126/66 01/03/18 00:00 01/03/18 00:21 01/03/18 01:01 Temperature 98.9 F Pulse Rate 81 76 Respiratory Rate 16 Blood Pressure 138/78 121/64 01/03/18 02:01 01/03/18 03:04 01/03/18 04:45 Temperature 98.1 F Pulse Rate 73 86 83 Respiratory Rate 18 Blood Pressure 125/74 129/77 158/97 H 01/03/18 06:36 01/03/18 08:00 01/03/18 09:30 Temperature 98.4 F 99.1 F Pulse Rate 78 87 86 Respiratory Rate 20 Blood Pressure 130/74 148/87 H 157/94 H Intake & Output 01/02/18 01/03/18 01/03/18 18:59 06:59 18:59 Intake Total 1999 Balance 1999 Intake: IV 1999 LR 1000 mL Inj 1,000 ML @ 42 1000 / 1000 mls/hr IV.CONT .[id number] [facility] Rx# :[id number] Magnesium Sulfate/Water 40 gm/ 1000 / 1000 1000 ml Premix 40 gm In 1,000 ml @ 2 GM/HR 50 mls/hr IV.CONT Q24H [facility] Rx#:[id number] Result Diagrams: 01/03/18 09:01 12/31/17 16:25 Objective Remarks: General: Alert, well appearing, in no acute distress Skin: Warm and dry HEENT: Atraumatic. Moist mucus membranes Cardiac: Regular rate and rhythm without murmur Pulmonary: No increased work of breathing. Clear to auscultation bilaterally with good air movement. Abdominal: Non-tender. + Bowel sounds. uterus firm and below the umbilicus. Drain in place with about 10 cc of serosanguineous output. Extremities: 2+ pedal pulses, no edema, no calf tenderness Medications and IVs: Active Medications Acetaminophen (Tylenol) 650 mg PO Q6H PRN PRN Reason: PAIN SCALE 1 TO 2 Citric Acid/Sodium Citrate (Sodium Citrate/Citric Acid Liq) 30 ml PO EVENT MARKETING ASSISTANT [facility] Stop: 01/04/18 23:14 Diphtheria/Pertussis/Tetanus Vacc (Boostrix Vaccine Inj) 0.5 ml IM .ONCE ONE Stop: 01/03/18 16:01 Elvitegravir/Cobicis/Emtricit/Tenof (Stribild 150/150/200/300 Mg) 1 tab PO Q24H [facility] Fentanyl Citrate (Fentanyl Inj) 50 mcg IV.PUSH Q1H PRN PRN Reason: Pain Scale 3 - 5 Last Admin: 01/01/18 04:30 Dose: 50 mcg Lactated Ringer's (Lr 1000 Ml Inj) 1,000 mls @ 42 mls/hr IV.CONT .[id number] [facility] Last Admin: 01/02/18 16:57 Dose: 75 mls/hr Oxytocin (Pitocin 30 Units/Ns 500 Ml Premix) 30 units in 500 mls @ 100 mls/hr IV.SIG UNSCH PRN PRN Reason: Heavy bleeding Last Admin: 01/02/18 09:26 Dose: 100 mls/hr Ibuprofen (Motrin) 800 mg PO Q8H PRN PRN Reason: cramping Last Admin: 01/03/18 03:11 Dose: 800 mg Ketorolac Tromethamine (Toradol Inj) 30 mg IM Q6H PRN PRN Reason: SEE LABEL COMMENTS Stop: 01/07/18 04:02 Lidocaine HCl (Xylocaine 1% Inj) 0.1 ml I-DERMAL PRN PRN PRN Reason: For IV start Stop: 01/03/18 23:03 Measles/Mumps/Rubella Vaccine Live (M-M-R Ii Vaccine Inj) 0.5 ml SQ .ONCE ONE Stop: 01/03/18 16:01 Methyldopa (Aldomet) 250 mg PO BID [facility] Mineral Oil (Muri-Lube Oil) 10 ml TOPICAL PRN PRN PRN Reason: PRN perineal massage Miscellaneous (Pill Splitter) 1 each OTHER UNSCH PRN PRN Reason: PILL SPIT Naloxone HCl (Narcan Inj) 0.1 mg IV.PUSH Q2M PRN PRN Reason: for opiate reversal Ondansetron HCl (Zofran Odt) 4 mg PO Q6H PRN PRN Reason: NAUSEA Ondansetron HCl (Zofran Inj) 4 mg IV.PUSH Q6H PRN PRN Reason: VOMITING Last Admin: 01/02/18 09:24 Dose: 4 mg Ondansetron HCl (Zofran Inj) 4 mg IV.PUSH Q6H PRN PRN Reason: NAUSEA OR VOMITING Oxycodone/Acetaminophen (Percocet 5/325 Mg) 1 tab PO Q4H PRN PRN Reason: PAIN SCALE 3 TO 5 Last Admin: 01/03/18 09:41 Dose: 1 tab Oxycodone/Acetaminophen (Percocet 5/325 Mg) 2 tab PO Q4H PRN PRN Reason: PAIN SCALE 6 TO 10 Last Admin: 01/03/18 03:11 Dose: 2 tab Vit/Calcium/Iron/Folic Ac (Stuartnatal Plus 3) 1 tab PO DAILY [facility] Last Admin: 01/03/18 09:11 Dose: Not Given Senna/Docusate Sodium (Meseret-Colace) 2 tab PO Q12H PRN PRN Reason: CONSTIPATION Simethicone (Mylicon Chew) 80 mg PO QID PRN PRN Reason: FLATULENCE Sodium Chloride (Ns Flush) 2 ml IV.FLUSH BID [facility] Last Admin: 01/03/18 09:11 Dose: 2 ml Sodium Chloride (Ns Flush) 2 ml IV.FLUSH PRN PRN PRN Reason: FLUSH AFTER USING IV ACCESS Assessment and Plan - Diagnosis (1) 35 weeks gestation of Code(s): Z3A.35 - 35 weeks gestation of Status: Acute (2) Severe pre-eclampsia affecting first Code(s): O14.10 - Severe pre-eclampsia, unspecified trimester Status: Acute (3) HIV (human immunodeficiency virus infection) Code(s): B20 - Human immunodeficiency virus [HIV] disease Status: Acute (4) delivery due to maternal disorder Status: Acute - Plan 22 year old female who is POD# 1 s/p delivery (for preeclampsia with severe features, also with history of HIV and undetectable viral load) Status post magnesium, Celestone, Zidovudine -Continue care -Percocet and Motrin PRN pain -Encouraged OOB. Advised pelvic rest for 6 wks. Will need a follow up appt. in 1 wk for incision check - Control: undecided at this point -Anticipate DC home Saturday Preeclampsia with severe features: -Received multiple doses of IV labetalol. Now on PO methyldopa 250mg BID -We will continue to follow blood pressures closely -We will need close follow-up with care for women due to blood pressure -It is unlikely that this represents chronic hypertension because patient had normal blood pressures at the beginning of HIV: -Most recent viral load is reportedly undetectable -Continue home medication Stribild, she did miss her dose yesterday due to nausea and vomiting. This medication must be taken on a full stomach. -Viral load ordered and currently pending Mild hypokalemia -On PO KCl -Potassium 3.2 on 12/31 -Repeat BMP ordered for today Care discussed with: Dr. Rivero
[2018-01-03 12:39] LABS: Anion Gap 8 meq/L (5-15); Blood Urea Nitrogen 10 mg/dL (7-18); Calcium 7.8 mg/dL (8.5-10.1); Carbon Dioxide 29.1 meq/L (21.0-32.0); Chloride 98 meq/L (98-107); Glomerular Filtration Rate Greater Than 89 mL/min (>89); Glucose,Random 78 mg/dL (74-106); Potassium 3.3 meq/L (3.5-5.1); Sodium 135 meq/L (136-145)
[2018-01-03] MEDS ORDERED: Measles/Mumps/Rubella Vaccine Inj 0.5 ML Vial SQ ONE (16:00)
[2018-01-03] MEDS ORDERED: Diphtheria/Tetanus/Pertussis Vaccine Inj 0.5 ML Syringe IM ONE (16:00)
[2018-01-03] MEDS: Elvitegravir/Cobi/Emtricit/Tenof 150/150/200/300 MG Tablet PO SCH (20:55)
--- NOTE | 2018-01-04 07:43 | P.PNOB ---
Subjective Post op day: 2 Interval history: Patient's pain is well-controlled. Patient reports eating and drinking without any nausea or vomiting. Patient reports minimal bleeding. Patient has passed gas but no bowel movements. Patient is walking without lower extremity pain or shortness of breath. Objective Vital Signs/I&O: Vital Signs 01/03/18 08:00 01/03/18 09:30 01/03/18 12:00 Temperature 98.4 F 99.1 F 98.1 F Pulse Rate 87 86 88 Respiratory Rate 20 20 Blood Pressure 148/87 H 157/94 H 186/107 H 01/03/18 12:45 01/03/18 13:02 01/03/18 16:00 Temperature Pulse Rate 80 76 Respiratory Rate 20 Blood Pressure 169/102 H 133/79 153/90 H 01/03/18 20:00 01/04/18 00:00 01/04/18 04:00 Temperature 98.2 F 98.1 F 98.0 F Pulse Rate 70 96 H 76 Respiratory Rate 20 18 18 Blood Pressure 147/81 H 154/89 H 127/65 Result Diagrams: 01/03/18 09:01 01/03/18 12:08 Objective Remarks: GENERAL: Well-nourished, well-developed patient. CARDIOVASCULAR: Regular rate and rhythm without murmurs, gallops, or rubs. RESPIRATORY: Breath sounds equal bilaterally. No accessory muscle use. ABDOMEN/GI: Abdomen soft, non-tender, bowel sounds present. Incision: Clean, dry and intact. Fundus: Firm, non-tender at umbilicus. GENITOURINARY: Light to moderate bleeding. EXTREMITIES: No cyanosis or edema, non-tender, without signs of DVT. Medications and IVs: Active Medications Acetaminophen (Tylenol) 650 mg PO Q6H PRN PRN Reason: PAIN SCALE 1 TO 2 Citric Acid/Sodium Citrate (Sodium Citrate/Citric Acid Liq) 30 ml PO SALES REPRESENTATIVE [employer] [facility]END[facility] Stop: 01/04/18 23:14 Elvitegravir/Cobicis/Emtricit/Tenof (Stribild 150/150/200/300 Mg) 1 tab PO Q24H [facility] Last Admin: 01/03/18 20:55 Dose: 1 tab Fentanyl Citrate (Fentanyl Inj) 50 mcg IV.PUSH Q1H PRN PRN Reason: Pain Scale 3 - 5 Last Admin: 01/01/18 04:30 Dose: 50 mcg Lactated Ringer's (Lr 1000 Ml Inj) 1,000 mls @ 42 mls/hr IV.CONT .[id number] [facility] Last Admin: 01/03/18 20:56 Dose: Not Given Oxytocin (Pitocin 30 Units/Ns 500 Ml Premix) 30 units in 500 mls @ 100 mls/hr IV.SIG UNSCH PRN PRN Reason: Heavy bleeding Last Admin: 01/02/18 09:26 Dose: 100 mls/hr Ibuprofen (Motrin) 800 mg PO Q8H PRN PRN Reason: cramping Last Admin: 01/04/18 05:57 Dose: 800 mg Ketorolac Tromethamine (Toradol Inj) 30 mg IM Q6H PRN PRN Reason: SEE LABEL COMMENTS Stop: 01/07/18 04:02 Methyldopa (Aldomet) 250 mg PO BID [facility] Last Admin: 01/03/18 20:55 Dose: 250 mg Mineral Oil (Muri-Lube Oil) 10 ml TOPICAL PRN PRN PRN Reason: PRN perineal massage Miscellaneous (Pill Splitter) 1 each OTHER UNSCH PRN PRN Reason: PILL SPIT Naloxone HCl (Narcan Inj) 0.1 mg IV.PUSH Q2M PRN PRN Reason: for opiate reversal Ondansetron HCl (Zofran Odt) 4 mg PO Q6H PRN PRN Reason: NAUSEA Ondansetron HCl (Zofran Inj) 4 mg IV.PUSH Q6H PRN PRN Reason: VOMITING Last Admin: 01/02/18 09:24 Dose: 4 mg Ondansetron HCl (Zofran Inj) 4 mg IV.PUSH Q6H PRN PRN Reason: NAUSEA OR VOMITING Oxycodone/Acetaminophen (Percocet 5/325 Mg) 1 tab PO Q4H PRN PRN Reason: PAIN SCALE 3 TO 5 Last Admin: 01/03/18 20:55 Dose: 1 tab Oxycodone/Acetaminophen (Percocet 5/325 Mg) 2 tab PO Q4H PRN PRN Reason: PAIN SCALE 6 TO 10 Last Admin: 01/04/18 05:58 Dose: 2 tab Vit/Calcium/Iron/Folic Ac (Stuartnatal Plus 3) 1 tab PO DAILY [facility] Last Admin: 01/03/18 09:11 Dose: Not Given Senna/Docusate Sodium (Meseret-Colace) 2 tab PO Q12H PRN PRN Reason: CONSTIPATION Last Admin: 01/03/18 14:37 Dose: 2 tab Simethicone (Mylicon Chew) 80 mg PO QID PRN PRN Reason: FLATULENCE Sodium Chloride (Ns Flush) 2 ml IV.FLUSH BID [facility] Last Admin: 01/03/18 20:55 Dose: 2 ml Sodium Chloride (Ns Flush) 2 ml IV.FLUSH PRN PRN PRN Reason: FLUSH AFTER USING IV ACCESS Assessment and Plan - Diagnosis (1) 35 weeks gestation of Code(s): Z3A.35 - 35 weeks gestation of Status: Acute (2) Severe pre-eclampsia affecting first Code(s): O14.10 - Severe pre-eclampsia, unspecified trimester Status: Acute (3) HIV (human immunodeficiency virus infection) Code(s): B20 - Human immunodeficiency virus [HIV] disease Status: Acute (4) delivery due to maternal disorder Status: Acute - Plan 22 year old female who is POD# 2 s/p delivery (for preeclampsia with severe features, also with history of HIV and undetectable viral load) Status post magnesium, Celestone, Zidovudine -Continue care -Percocet and Motrin PRN pain -Encouraged OOB. Advised pelvic rest for 6 wks. Will need a follow up appt. in 1 wk for incision check - Control: undecided at this point -Anticipate DC home Saturday Preeclampsia with severe features: -Received multiple doses of IV labetalol. Now on PO methyldopa 250mg BID -We will continue to follow blood pressures closely -We will need close follow-up with care for women due to blood pressure -It is unlikely that this represents chronic hypertension because patient had normal blood pressures at the beginning of HIV: -Most recent viral load is reportedly undetectable -Continue home medication Stribild, she did miss her dose yesterday due to nausea and vomiting. This medication must be taken on a full stomach. -Viral load ordered and currently pending Mild hypokalemia -On PO KCl -Potassium 3.3 -COnt to supplement
[2018-01-04] MEDS: Prenatal Vit/Ca/Iron/Folic Acid Tablet PO SCH (08:57)
[2018-01-04] MEDS: Elvitegravir/Cobi/Emtricit/Tenof 150/150/200/300 MG Tablet PO SCH (20:49)
[2018-01-05] MEDS: Prenatal Vit/Ca/Iron/Folic Acid Tablet PO SCH (08:11)
--- NOTE | 2018-01-05 09:57 | P.PNOB ---
Subjective Post op day: 3 Interval history: Postoperative day number 3. Afebrile, VS stable overnight. Pain controlled with medications. Incision not draining, has a drain in place. Decreased lochia. Denies dysuria. No breast tenderness. She is feeding the baby via bottle. Appetite good. No nausea or vomiting. Has flatus. No bowel movement. Ambulating well. Denies calf pain, shortness of breath, or cough. Otherwise , she is doing well this morning, is concerned about going home due to her drain , she is not sure how to take care of it. Objective Vital Signs/I&O: Vital Signs 01/04/18 12:00 01/04/18 19:26 01/05/18 00:00 Temperature 97.6 F 98.2 F Pulse Rate 79 88 76 Respiratory Rate 20 18 18 Blood Pressure 154/93 H 136/70 137/85 01/05/18 04:00 01/05/18 07:20 Temperature 98.1 F 98.2 F Pulse Rate 100 H 88 Respiratory Rate 20 20 Blood Pressure 153/81 H 140/71 Result Diagrams: 01/03/18 09:01 01/03/18 12:08 Objective Remarks: GENERAL: Obese patient, flat affect, in NAD CARDIOVASCULAR: Regular rate and rhythm without murmurs, gallops, or rubs. RESPIRATORY: Breath sounds equal bilaterally. No accessory muscle use. ABDOMEN/GI: Abdomen soft, non-tender, bowel sounds present. Incision: Clean, dry and intact. Drain w/ serosanguineous drain. Fundus: Firm, non-tender at umbilicus. GENITOURINARY: Light to moderate bleeding. EXTREMITIES: No cyanosis or edema, non-tender, without signs of DVT. Medications and IVs: Active Medications Acetaminophen (Tylenol) 650 mg PO Q6H PRN PRN Reason: PAIN SCALE 1 TO 2 Elvitegravir/Cobicis/Emtricit/Tenof (Stribild 150/150/200/300 Mg) 1 tab PO Q24H [facility] Last Admin: 01/04/18 20:49 Dose: 1 tab Fentanyl Citrate (Fentanyl Inj) 50 mcg IV.PUSH Q1H PRN PRN Reason: Pain Scale 3 - 5 Last Admin: 01/01/18 04:30 Dose: 50 mcg Lactated Ringer's (Lr 1000 Ml Inj) 1,000 mls @ 42 mls/hr IV.CONT .[id number] [facility] Last Admin: 01/04/18 17:22 Dose: Not Given Oxytocin (Pitocin 30 Units/Ns 500 Ml Premix) 30 units in 500 mls @ 100 mls/hr IV.SIG UNSCH PRN PRN Reason: Heavy bleeding Last Admin: 01/02/18 09:26 Dose: 100 mls/hr Ibuprofen (Motrin) 800 mg PO Q8H PRN PRN Reason: cramping Last Admin: 01/05/18 03:50 Dose: 800 mg Ketorolac Tromethamine (Toradol Inj) 30 mg IM Q6H PRN PRN Reason: SEE LABEL COMMENTS Stop: 01/07/18 04:02 Methyldopa (Aldomet) 250 mg PO BID [facility] Last Admin: 01/05/18 08:11 Dose: 250 mg Mineral Oil (Muri-Lube Oil) 10 ml TOPICAL PRN PRN PRN Reason: PRN perineal massage Miscellaneous (Pill Splitter) 1 each OTHER UNSCH PRN PRN Reason: PILL SPIT Naloxone HCl (Narcan Inj) 0.1 mg IV.PUSH Q2M PRN PRN Reason: for opiate reversal Ondansetron HCl (Zofran Odt) 4 mg PO Q6H PRN PRN Reason: NAUSEA Ondansetron HCl (Zofran Inj) 4 mg IV.PUSH Q6H PRN PRN Reason: VOMITING Last Admin: 01/02/18 09:24 Dose: 4 mg Ondansetron HCl (Zofran Inj) 4 mg IV.PUSH Q6H PRN PRN Reason: NAUSEA OR VOMITING Oxycodone/Acetaminophen (Percocet 5/325 Mg) 1 tab PO Q4H PRN PRN Reason: PAIN SCALE 3 TO 5 Last Admin: 01/03/18 20:55 Dose: 1 tab Oxycodone/Acetaminophen (Percocet 5/325 Mg) 2 tab PO Q4H PRN PRN Reason: PAIN SCALE 6 TO 10 Last Admin: 01/05/18 09:36 Dose: 2 tab Vit/Calcium/Iron/Folic Ac (Stuartnatal Plus 3) 1 tab PO DAILY [facility] Last Admin: 01/05/18 08:11 Dose: 1 tab Senna/Docusate Sodium (Meseret-Colace) 2 tab PO Q12H PRN PRN Reason: CONSTIPATION Last Admin: 01/03/18 14:37 Dose: 2 tab Simethicone (Mylicon Chew) 80 mg PO QID PRN PRN Reason: FLATULENCE Sodium Chloride (Ns Flush) 2 ml IV.FLUSH BID [facility] Last Admin: 01/05/18 08:10 Dose: Not Given Sodium Chloride (Ns Flush) 2 ml IV.FLUSH PRN PRN PRN Reason: FLUSH AFTER USING IV ACCESS Assessment and Plan - Diagnosis (1) 35 weeks gestation of Code(s): Z3A.35 - 35 weeks gestation of Status: Acute (2) Severe pre-eclampsia affecting first Code(s): O14.10 - Severe pre-eclampsia, unspecified trimester Status: Acute (3) HIV (human immunodeficiency virus infection) Code(s): B20 - Human immunodeficiency virus [HIV] disease Status: Acute (4) delivery due to maternal disorder Status: Acute - Plan 22 year old female who is POD# 3 s/p delivery (for preeclampsia with severe features, also with history of HIV and undetectable viral load) Status post magnesium, Celestone, Zidovudine -Continue care -Percocet and Motrin PRN pain -Encouraged OOB. Advised pelvic rest for 6 wks. Will need a follow up appt. in 1 wk for incision check - Control: undecided at this point -DC home today, drained taken out. Preeclampsia with severe features: -Received multiple doses of IV labetalol. Now on PO methyldopa 250mg BID -We will continue to follow blood pressures closely -We will need close follow-up with care for women due to blood pressure -It is unlikely that this represents chronic hypertension because patient had normal blood pressures at the beginning of HIV: -Most recent viral load is reportedly undetectable -Continue home medication Stribild. This medication must be taken on a full stomach. -Viral load: HIV RNA copies 165.0 H, and RNA log copies 2.2 H. Both elevated - Will need outpatient follow up
== END 2018-01-05 10:32 | disposition home or self-care (01) ==
LOC: HOBED 14:09 → H2E 17:22 → H1EA 01-03 09:19
PROVIDERS: ADMIT Obstetrics & Gynecology; ATTEND Obstetrics & Gynecology